=== PATIENT | male | born 1955 | race Two or more races ===

== ENCOUNTER → 2020-06-15 | Outpatient (CLI) | payer OTHER | END | disposition home or self-care (01) | LOC: PPH VACUNA 09:00 | PROVIDERS: ATTEND Emergency Medicine Pediatric Emergency Medicine | DX: Z23 Encounter for immunization (principal) ==

== ENCOUNTER 2021-02-21 11:01 | Outpatient (CLI) | payer OTHER | END 2021-02-21 11:10 | disposition home or self-care (01) | LOC: NUCLEAR 11:01 | PROVIDERS: ATTEND Orthopaedic Surgery | DX: M79.605 Pain in left leg (principal) | CPT/HCPCS: 73718 ==

== ENCOUNTER 2021-02-21 12:47 | Outpatient (CLI) | payer OTHER | END 2021-02-21 12:51 | disposition home or self-care (01) | LOC: MRI 12:47 | PROVIDERS: ATTEND Orthopaedic Surgery | DX: M66.362 Spontaneous rupture of flexor tendons, left lower leg (principal) | CPT/HCPCS: 73718 ==

== ENCOUNTER 2021-05-04 08:00 | Outpatient (CLI) | payer OTHER | END 2021-05-04 08:30 | disposition home or self-care (01) | LOC: PPH VACUNA 08:00 | PROVIDERS: ATTEND Emergency Medicine Pediatric Emergency Medicine | DX: Z23 Encounter for immunization (principal) ==

== ENCOUNTER 2023-12-30 15:24 | Outpatient (CLI) | payer OTHER | END 2023-12-30 15:26 | disposition home or self-care (01) | LOC: RAD 15:24 | PROVIDERS: ATTEND Urology | DX: C64.1 Malignant neoplasm of right kidney, except renal pelvis (principal) ==